=== PATIENT | male | born 1970 | race Caucasian/White ===

== ENCOUNTER → 2019-02-05 | Outpatient (CLI) | payer BC ==
[~2019-02-05] MED LIST: ALPR0.5T8 PO; ASPI-1197 PO; ESCI20TA36 PO; PRAV40TA3 PO
== END | disposition home or self-care (01) ==
LOC: RAH 16:02
PROVIDERS: ATTEND Internal Medicine
DX: M25.772 Osteophyte, left ankle (principal); M25.571 Pain in right ankle and joints of right foot
CPT/HCPCS: 73610